=== PATIENT | male | born 1990 | race Two or more races ===

== ENCOUNTER 2021-06-24 18:08 | Emergency (ER) | payer MEDICAID ==
[~2021-06-24] VITALS: Ht 188 cm; Wt 65.8 kg
[2021-06-24] MEDS: IV NS 0.9% 1,000 ML IV SCH (03:00)
--- NOTE | 2021-06-24 18:08 | NUR ---
PT BIB SELF C/O SI "I WANT TO JUMP IN THE PULIDO AND DROWN" PT IS AAOX4, NOT IN RESPIRATORY DISTRESS, V/S STABLE, KEPT RESTED AND COMFORTABLE. WILL CONTINUE TO MONITOR.
--- NOTE | 2021-06-24 18:40 | NUR ---
URINE SPECIMEN COLLECTED AND SENT TO LAB.
--- NOTE | 2021-06-24 18:48 | NUR ---
COVID SWAB DONE AND SENT TO LAB
[2021-06-24 19:12] LABS: BILIRUBIN,URINE NEGATIVE (NEGATIVE); COLOR,URINE YELLOW (YELLOW); LEUKOCYTE ESTERASE ,URINE NEGATIVE (NEGATIVE); NITRITE, URINE NEGATIVE (NEGATIVE); PROTEIN,URINE NEGATIVE (NEGATIVE); UGLUCOSE >=1000 mg/dL (NEGATIVE); UROBILINOGEN,URINE 0.2 EU/dL (0.2)
[2021-06-24 19:22] LABS: ACETAMINOPHEN 2 ug/ml (10-30); ALANINE AMINOTRANSFERASE 36 U/L (12-78); ALBUMIN 3.4 g/dL (3.4-5.0); ALCOHOL, BLOOD < 3 mg/dL (0-0); ALKALINE PHOSPHATASE 73 U/L (46-116); ASPARTATE AMINOTRANSFERASE 12 U/L (15-37); BILIRUBIN,DIRECT 0.1 mg/dL (0.0-0.2); BILIRUBIN,TOTAL 0.4 mg/dL (0.2-1.0); CALCIUM, SERUM 8.7 mg/dL (8.5-10.1); CARBON DIOXIDE 27 mmol/L (21-32); CHLORIDE 91 mmol/L (98-107); POTASSIUM 4.2 mmol/L (3.5-5.1); SODIUM SERUM 126 mmol/L (136-145); TOTAL PROTEIN, SERUM 6.2 g/dL (6.4-8.2); UREA NITROGEN, BLOOD 14 mg/dL (7-18)
[2021-06-24 20:09] LABS: GLUCOSE 851 mg/dL (74-106)
[2021-06-24 20:21] LABS: EOSINOPHILS % (AUTO) 1.5 % (0.0-6.0); HEMATOCRIT 35 % (39-51); HEMOGLOBIN 11.5 g/dL (13.5-17.5); LYMPHOCYTES % (AUTO) 29.7 % (20.0-44.0); MEAN CORPUSCULAR HGB CONC 33 g/dl (31.0-36.0); MEAN CORPUSCULAR VOLUME 90 fL (80-96); MONOCYTES # (AUTO) 0.3 K/uL (0.1-1.30); MONOCYTES % (AUTO) 8.3 % (2.0-12.0); NEUTROPHILS # (AUTO) 2.1 K/uL (1.8-8.9); NEUTROPHILS % (AUTO) 59.5 % (43.0-81.0); PLATELET COUNT (AUTO) 258 K/uL (150-450); RED BLOOD CELL COUNT(AUTO) 3.86 MIL/uL (4.5-6.0); WHITE BLOOD COUNT (AUTO) 3.5 K/uL (4.3-11.0)
[2021-06-24] MEDS ORDERED: IV NS 0.9% 1,000 ML BAG IV ONE (20:30)
[2021-06-24] MEDS ORDERED: INSULIN REGULAR, HUMAN 100 UNIT/ML 10 ML VIAL SQ ONE (20:30)
[2021-06-24] MEDS ORDERED: DEXTROSE 50%-WATER 50 ML DISP.SYRIN IV PRN (22:00)
[2021-06-24] MEDS ORDERED: Z GUARD REMEDY 4 OZ OINT TP PRN (22:00)
[2021-06-24] MEDS ORDERED: MAGNESIUM HYDROXIDE 30 ML UDC PO PRN (22:00)
[2021-06-24] MEDS ORDERED: ACETAMINOPHEN 325 MG TABLET PO PRN (22:00)
[2021-06-24] MEDS ORDERED: ZOLPIDEM TARTRATE 5 MG TABLET PO PRN (22:00)
[2021-06-24] MEDS ORDERED: MAG HYDROX/AL HYDROX/SIMETH 30 ML UDC PO PRN (22:00)
[2021-06-24] MEDS ORDERED: ONDANSETRON HCL/PF 4 MG/2 ML VIAL IVP PRN (22:00)
[2021-06-24] MEDS ORDERED: INSULIN GLARGINE, 100 UNIT/ML CARTRIDGE SQ SCH (22:00)
--- NOTE | 2021-06-24 22:29 | NUR ---
BS 411 MADE AWARE
[2021-06-24] MEDS: BLOOD SUGAR DIAGNOSTIC 1 EACH STRIP IN SCH (22:50)
[2021-06-25] MEDS: INSULIN REGULAR, HUMAN 100 UNIT/ML 3 ML VIAL SQ PRN ×3 (00:30→17:40)
[2021-06-25 01:42] LABS: BASOPHILS % (AUTO) 1.1 % (0.0-2.0); EOSINOPHILS % (AUTO) 2.5 % (0.0-6.0); HEMATOCRIT 33 % (39-51); HEMOGLOBIN 11.3 g/dL (13.5-17.5); LYMPHOCYTES # (AUTO) 2.2 K/uL (0.8-4.8); LYMPHOCYTES % (AUTO) 51.5 % (20.0-44.0); MEAN CORPUSCULAR HGB CONC 34 g/dl (31.0-36.0); MEAN CORPUSCULAR VOLUME 87 fL (80-96); MONOCYTES # (AUTO) 0.3 K/uL (0.1-1.30); MONOCYTES % (AUTO) 6.1 % (2.0-12.0); NEUTROPHILS # (AUTO) 1.6 K/uL (1.8-8.9); NEUTROPHILS % (AUTO) 38.8 % (43.0-81.0); PLATELET COUNT (AUTO) 247 K/uL (150-450); RED BLOOD CELL COUNT(AUTO) 3.85 MIL/uL (4.5-6.0); WHITE BLOOD COUNT (AUTO) 4.2 K/uL (4.3-11.0)
[2021-06-25 01:52] LABS: CALCIUM, SERUM 8.3 mg/dL (8.5-10.1); CREATININE 0.7 mg/dL (0.6-1.3); POTASSIUM 3.3 mmol/L (3.5-5.1)
--- NOTE | 2021-06-25 02:24 | NUR ---
BS NOTED AT 103
[2021-06-25 02:35] LABS: PHOSPHORUS 5.2 mg/dL (2.5-4.9)
[2021-06-25] MEDS ORDERED: INSULIN GLARGINE, 100 UNIT/ML CARTRIDGE SQ ONE (02:35)
[2021-06-25] MEDS ORDERED: Insulin Glargine,Hum SQ (02:47)
[2021-06-25] MEDS ORDERED: Blood Sugar Diagnostic IN (02:47)
[2021-06-25] MEDS ORDERED: INSU100V3 SUBCUT (02:47)
[2021-06-25] MEDS ORDERED: DEXT50DI8 IV (02:47)
[2021-06-25] MEDS ORDERED: POTASSIUM CHLORIDE 20 MEQ TAB.PRT.SR PO ONE ×2 (03:00→05:06)
--- NOTE | 2021-06-25 03:45 | NUR ---
FACESHEET AND CLINICALS FAXED TO [facility].
--- NOTE | 2021-06-25 07:36 | NUR ---
PATIENT IN BED ASLEEP, EASILY AROUSABLE BY VOICE. HOOKED TO MONITOR. VSS. WILL CONTINUE TO MONITOR ACCORDINGLY
[2021-06-25] MEDS: BLOOD SUGAR DIAGNOSTIC 1 EACH STRIP IN SCH ×3 (07:52→17:31)
--- NOTE | 2021-06-25 08:30 | NUR ---
BREAKFAST TRAY PROVIDED. TOLERATED WELL
[2021-06-25] MEDS: IV NS 0.9% 1,000 ML IV SCH (10:00)
--- NOTE | 2021-06-25 12:00 | NUR ---
SO KAYLYN MARTINEZ CALLED AND GAVE ACCEPTANCE INFO ETA FOR ENVIRONMENTAL COMPLIANCE TECHNICIAN IS 1330 NUMBER FOR REPORT [phone]
[2021-06-25] MEDS ORDERED: INSULIN REGULAR, HUMAN 100 UNIT/ML 10 ML VIAL ONE (14:14)
--- NOTE | 2021-06-25 14:15 | NUR ---
FOOD TRAY PROVIDED. TOLERATED WELL
[2021-06-25 16:47] VITALS: BP 121/67
--- NOTE | 2021-06-25 16:48 | NUR ---
PT ASLEEP, EASILY AWAKEN BY VERBAL STIMULI AND WILL GO BACK TO SLEEP. RR EVEN & UNLABORED. NAD NOTED AT THIS TIME. WILL CONT TO MONITOR.
--- NOTE | 2021-06-25 19:22 | NUR ---
ENDORSEMENT GIVEN TO THOR RAJAN FOR JOVANNA
--- NOTE | 2021-06-25 19:55 | NUR ---
PT PICKED UP FOR [facility]AYLYN [facility].
[2021-06-27 06:06] LABS: *C PEPTIDE 0.4 ng/mL (1.1-4.4); *INSULIN 30.7 uIU/mL (2.6-24.9)
== END 2021-06-25 20:00 ==
LOC: ER 18:22
DX: E11.65 Type 2 diabetes mellitus with hyperglycemia (principal); D72.819 Decreased white blood cell count, unspecified; E87.1 Hypo-osmolality and hyponatremia; Z59.00 Homelessness unspecified; F11.20 Opioid dependence, uncomplicated; Z20.822 Contact with and (suspected) exposure to COVID-19; R45.1 Restlessness and agitation
CPT/HCPCS: 36415 ×2; 80048 ×2; 80061; 80076; 80143; 80307; 80320; 81003; 82962 ×6; 83036; 83525; 83735; 84100; 85025 ×2; 87426; 96360; 96361 ×2; 96372 ×3; 99285; C9803; J1815 ×2; J7030 ×3; G0480